=== PATIENT | male | born 1955 | race Caucasian/White ===

== ENCOUNTER 2021-04-17 17:21 | Inpatient (IN) | payer OTHER ==
[~2021-04-17] VITALS: Ht 182.9 cm; Wt 98.3 kg
[2021-04-17 18:25] LABS: BASOPHILS ABSOLUTE AUTO 0.03 K/mm3 (0.00-0.23); BASOPHILS PERCENT AUTO 0 % (0-2); EOSINOPHILS ABSOLUTE AUTO 0.17 K/mm3 (0.00-0.68); EOSINOPHILS PERCENT AUTO 1 % (0-6); Hematocrit 52.6 % (37.0-53.0); Hemoglobin 17.5 g/dL (13.5-17.5); IMMATURE GRAN ABSOLUTE AUTO 0.05 K/mm3 (0.00-0.10); IMMATURE GRAN PERCENT AUTO 0 % (0-1); LYMPHOCYTES ABSOLUTE AUTO 1.91 K/mm3 (0.84-5.20); LYMPHOCYTES PERCENT AUTO 16 % (21-46); MONOCYTES PERCENT AUTO 6 % (4-13); Mean Corpuscular HGB 30.3 pg (26.0-34.0); Mean Corpuscular HGB Conc 33.3 g/dL (31.5-36.5); Mean Corpuscular Volume 91 fL (80-100); Mean Platelet Volume 10.3 fL (9.1-12.4); NEUTROPHILS ABSOLUTE AUTO 8.94 K/mm3 (1.96-9.15); NEUTROPHILS PERCENT AUTO 76 % (41-73); Platelet Count 186 K/mm3 (150-400); RDW Coefficient Variation 13.9 % (11.7-14.2); RDW Standard Deviation 46.8 fL (35.1-46.3); Red Blood Cell Count 5.77 M/mm3 (4.30-5.90)
[2021-04-17 18:34] LABS: Albumin, Blood 4.4 g/dL (3.4-5.0); Albumin/Globulin Ratio 1.3 (0.8-1.8); Bilirubin, Total 0.7 mg/dL (0.1-1.0); Creatinine, Blood 1.47 mg/dL (0.60-1.20); Globulin, Blood 3.5 g/dL (2.2-4.0); Potassium, Blood 4.6 mmol/L (3.5-5.5); Total Protein, Blood 7.9 g/dL (6.4-8.2)
[2021-04-17] MEDS ORDERED: CLOP75 PO (19:03)
[2021-04-17 19:20] LABS: Influenza A, PCR NEGATIVE (NEGATIVE); Influenza B, PCR NEGATIVE (NEGATIVE); Resp Syncytial Virus, PCR NEGATIVE (NEGATIVE); SARS-Cov-2 (COVID-19) PCR, MMC NEGATIVE (NEGATIVE)
--- NOTE | 2021-04-17 22:00 | NUR ---
ASSUMED CARE PT ARRIVED FROM MEN'S LOCKER ROOM ATTENDANT AT 2054 AFTER RECEIVING PCI FOR INFERIOR OR. RECEIVED REPORT FROM BOTH SUZIE YOU IN ED, AND SUZIE AREVALO FROM MEN'S LOCKER ROOM ATTENDANT. HE ARRIVED TO HOSPITAL TODAY AFTER EXPERIENCING DIZZINESS, LIGHT HEADEDNESS, DIAPHORESIS, AND CHEST PAIN WHILE DOING YARD WORK. HE TOOK ASPIRIN AT HOME AND NOTICED HIS HEART RATE WAS IN THE 40'S. PT HAS HX OF 5-WAY BYPASS AND HAS CHRONIC ST ELEVATION/OR. PT HAS PERCLOSE R.GROIN ACCESS SITE. NO HEMATOMA, NO BLEEDING NOTED AT SITE. HE IS A/OX4, FOLLOWS COMMANDS AND EXPRESSES NEEDS WELL. HR IS SR WITH CHRONIC ST ELEVATION, RATE IN 60'S. HE DENIES CHEST PAIN. BP STABLE. ON ROOM AIR, SPO2 >95%, LUNGS CLEAR THROUGHOUT. HE DENIES NAUSEA/VOMITING, AND IS REQUESTING A SNACK. BOWEL TONES ACTIVE X4, LAST BM THIS AM. HE USES URINAL AT BEDSIDE WITHOUT DIFFICULTY. SKIN OVERALL C/D/I. 18G IV TO LEFT WRIST, INFUSING WITH NS AT 75ML/HR, 20G TO RIGHT AC, SL. AT 2151, DR. DEVINE D/C HEPARIN GTT AND PT IS TO RECEIVE HEPARIN SUBQ TID ONLY. PT REMAINS SUPINE WITH HEAD UNELEVATED. ORDERS REVIEWED, WILL TREAT PRESCRIBED.
[2021-04-17 22:06] LABS: International Normalized Ratio 1.14; Prothrombin Time Results 11.9 Sec (9.7-11.5)
[2021-04-17] MEDS ORDERED: Carvedilol12.5 MG PO (22:08)
[2021-04-17] MEDS ORDERED: GEMF600 PO (22:08)
[2021-04-17] MEDS ORDERED: QUIN10 PO (22:09)
--- NOTE | 2021-04-17 23:56 | NUR ---
PT RESTING AT THIS TIME, REMAINS A/OX4. HE HAS EATEN A SNACK AND DENIES NAUSEA OR VOMITING AT THIS TIME. HR REMAINS SINUS EMILIANO TO SINUS RHYTHM WITH SOME IMPROVEMENT TO ST ELEVATION. VSS. RIGHT GROIN SITE REMAINS UNCHANGED, NO BLEEDING OR HEMATOMA FORMATION PRESENT.
[2021-04-18 05:13] LABS: BASOPHILS ABSOLUTE AUTO 0.02 K/mm3 (0.00-0.23); BASOPHILS PERCENT AUTO 0 % (0-2); EOSINOPHILS ABSOLUTE AUTO 0.11 K/mm3 (0.00-0.68); EOSINOPHILS PERCENT AUTO 1 % (0-6); Hematocrit 44.9 % (37.0-53.0); Hemoglobin 15.2 g/dL (13.5-17.5); IMMATURE GRAN ABSOLUTE AUTO 0.03 K/mm3 (0.00-0.10); IMMATURE GRAN PERCENT AUTO 0 % (0-1); LYMPHOCYTES ABSOLUTE AUTO 2.26 K/mm3 (0.84-5.20); LYMPHOCYTES PERCENT AUTO 21 % (21-46); MONOCYTES ABSOLUTE AUTO 0.73 K/mm3 (0.16-1.47); MONOCYTES PERCENT AUTO 7 % (4-13); Mean Corpuscular HGB 30.5 pg (26.0-34.0); Mean Corpuscular HGB Conc 33.9 g/dL (31.5-36.5); Mean Corpuscular Volume 90 fL (80-100); NEUTROPHILS ABSOLUTE AUTO 7.39 K/mm3 (1.96-9.15); NEUTROPHILS PERCENT AUTO 70 % (41-73); Platelet Count 166 K/mm3 (150-400); RDW Coefficient Variation 13.9 % (11.7-14.2); RDW Standard Deviation 45.6 fL (35.1-46.3); Red Blood Cell Count 4.98 M/mm3 (4.30-5.90); White Blood Cell Count 10.54 K/mm3 (4.00-11.30)
[2021-04-18 05:48] LABS: Anion Gap 7 mmol/L (6-16); Blood Urea Nitrogen 23 mg/dL (8-24); Bun/Creatinine Ratio 19.2 (12.0-20.0); CO2, Blood 23 mmol/L (21-32); Calcium, Blood 8.9 mg/dL (8.5-10.1); Chloride, Blood 109 mmol/L (98-108); Glomerular Filtration Rate >60 (60-); Glucose, Blood 151 mg/dL (70-99); Potassium, Blood 3.8 mmol/L (3.5-5.5); Sodium, Blood 139 mmol/L (136-145)
--- NOTE | 2021-04-18 06:07 | NUR ---
PT REMAINS A/O T/O SHIFT. HE SLEPT MINIMALLY. CONTINUOUS CARDIAC MONITORING SHOWS SINUS EMILIANO WITH NO ST ELEVATION IN LEAD II OR III, RATE IN 50-60'S. BP STABLE. PT STARTED TO C/O SOME SHORTNESS OF BREATH AROUND 0500. HE DENIED CHEST PAIN, LIGHT HEADEDNESS, DIZZINESS OR NAUSEA/VOMITING. 2L O2 PLACED AND HE REPORTED HE FELT BETTER. SPO2 >98%. HE CONTINUES TO USE THE URINAL WITHOUT ASSISTANCE. RIGHT FEMORAL SITE REMAINS STABLE, NO HEMATOMA OR BLEEDING NOTED. 500ML NS GIVEN, HE IS NOW SALINE LOCKED. PALLIATIVE CONSULT ORDERED PT DOES NOT HAVE ANY ADVANCED END OF LIFE CARE PLANNED. WILL REPORT TO ONCOMING SHIFT WHEN AVAILABLE.
--- NOTE | 2021-04-18 08:44 | NUR ---
When this RN brought in pt's breakfast tray, he stated that he typically eats keto diet at home. This RN offered for soda maker to see patient if he ends up staying in hospital overnight again. Pt states "they won't give me anything with fat". This RN encourages that he may be able to eat closer to his home diet, but with less salt. Pt states "Actually, did you know that studies show that people live longer if they eat 9674-3830 mg of sodium per day?" This RN attempted to educate about CHF and salt. Pt stated "well the problem is that people don't drink enough water to balance out all the salt". Attempted education about fluid overload with CHF. Pt does not seem to be receptive. Dr Payne notified about pt's dietary preferences.
--- NOTE | 2021-04-18 17:38 | NUR ---
SUMMARY Pt PCU status, transferred to PCU 14 at 1720. Discharge held as troponin is continuing to trend upwards. Pt and spouse updated, verbalized understanding and agreeable to staying overnight for observation. Requested sleep aid as pt did not sleep last night. Dr Payne notified, plans to place new orders. On transfer, pt A&O x 4. Answers questions, follows commands, verbalizes needs. Pleasant and cooperative with care. Tolerating activity well, independent in room. Pt ambulated from ICU 14 to PCU 14. No chest pain or shortness of breath with activity. No abnormality per continuous heart monitoring. No edema. Capillary refill less than 3 seconds BUE and BLE. Groin site unchanged from initial assessment. Care transferred to VEGETABLE WASHING MACHINE OPERATORLicha.
--- NOTE | 2021-04-18 18:41 | NUR ---
TRANSFER/SHIFT SUMMARY: PATIENT ARRIVED TO PCU AT 1750 VIA WALKING. VITAL SIGNS STABLE. TELE SHOWING SINUS EMILIANO WITH HR 50-60'S. DENIES CHEST PAIN/PRESSURE. RIGHT GROIN SITE WNL, SOFT/NONTENDER. NO SIGNS OF HEMATOMA. VERY MINIMAL BRUISING AT SITE. ON ROOM AIR SATING MID 90'S. DENIES COUGH. LUNGS SOUNDING CLEAR. DENIES ABDOMINAL PAIN/NAUSEA. UP IND TO BATHROOM. NEURO WNL, DENIES NUMBNESS/TINGLING. ALERT AND ORIENTED. ORIENTED TO UNIT/ROOM/CALL LIGHT. AT BEDSIDE. PATIENT EATING DINNER AT THIS TIME. DENIES NEEDS. WILL CONTINUE TO MONITOR AND REPORT OFF.
--- NOTE | 2021-04-18 20:37 | NUR ---
SPOKE WITH DR. DEVINE, PATIENT STATES HE MIGHT WANT TO TRY A SLEEP AID LATER TONIGHT. SHE SAID SHE ORDERED TRAZADONE AND WILL ORDER MELATONIN, GIVE ONE OR THE OTHER. STATES SHE ORDERED A TROPONIN FOR THE AM.
--- NOTE | 2021-04-18 21:20 | NUR ---
INITIAL NOTE: PATIENT A/OX3. DENIES PAIN. DENIES CHEST PAIN. STATES HE HAS NOT HAD CHEST PAIN SINCE HE WENT TO [employer]. SINUS EMILIANO ON TELE IN THE 50'S-60'S. ON ROOM AIR, DENIES SOB AT REST AND WITH EXERTION. R GROIN SITE WITH SMALL AMOUNT OF BRUISING IS SOFT, PATIENT REPORTS SLIGHT TENDERNESS WITH PALPATION. UP TO BATHROOM, HE IS STEADY ON HIS FEET. HE LIVES WITH HIS . HE DENIED NEED FOR MELATONIN OR TRAZADONE AT THIS TIME, STATES HE FEELS LIKE HE CAN SLEEP WITHOUT IT BUT HE WILL CALL IF HE FEELS LIKE HE NEEDS IT. DISCUSSED PLAN OF CARE FOR SHIFT. CALL LIGHT WITHIN REACH.
--- NOTE | 2021-04-19 00:10 | NUR ---
PATIENT CONTINUES TO DENY CHEST PAIN AND SHORTNESS OF BREATH. STATES THAT HE HAS SLEPT "OFF AND ON" AND REQUESTED TRAZADONE. MEDICATED PER EMAR.
--- NOTE | 2021-04-19 01:30 | NUR ---
PATIENT NAUSEAUS AND VOMITED IN BATHROOM. GAVE HIM CRACKERS, SPRITE, ICE CHIPS, AND WATER. HE WANTED TO CHEW ON SOME CRACKERS. HE DID NOT WANT ZOFRAN AT THIS TIME. DENIES CHEST PAIN/PRESSURE. DENIED DIZZINESS AND LIGHTHEADEDNESS WHEN UP. ENCOURAGED PATIENT TO CALL WHEN HE NEEDS TO GET UP TO THE BATHROOM.
[2021-04-19 04:06] LABS: Bun/Creatinine Ratio 16.3 (12.0-20.0); Calcium, Blood 9.6 mg/dL (8.5-10.1); Creatinine, Blood 1.47 mg/dL (0.60-1.20)
--- NOTE | 2021-04-19 06:30 | NUR ---
SHIFT SUMMARY: PATIENT A/OX3. HAS DENIED PAIN, CHEST PAIN, AND SHORTNESS OF BREATH THROUGHOUT THE SHIFT. AM TROPONIN LESS THAN LAST TROPONIN. HEART RATE AVERAGED 60-65 BPM LAST NIGHT. HAD NAUSEA AND EMESIS, DID NOT WANT ZOFRAN. RIGHT GROIN SITE REMAINS UNCHANGED. POSSIBLE DISCHARGE TODAY. WILL CONTINUE TO MONITOR AND REPORT TO ONCOMING RN.
[2021-04-19] MEDS ORDERED: ASPI81CH PO (10:32)
--- NOTE | 2021-04-19 11:11 | NUR ---
PT DISCHARGED HOME WITH HIS . PT ABLE TO AMBULATE WITHOUT ASSISTANCE. DISCHARGE TEACHING REVIEWED INCLUDING MEDICATION LIST, FOLLOW UP APPOINTMENTS, GROIN SITE CARE/PRECAUTIONS, AND EDUCATION MATERIALS. IVs REMOVED X 2 WNL. ALL BELONGINGS SENT HOME WITH PT. NO FURTHER DISCHARGE NEEDS IDENTIFIED AT THIS TIME.
== END 2021-04-19 11:14 | disposition home or self-care (01) | DRG 251 ==
LOC: ER 17:21 → ICUW 18:26 → PCU 04-18 17:30
PROVIDERS: Physician Assistant; Student in an Organized Health Care Education/Training Program; ADMIT Internal Medicine Interventional Cardiology
PROC: 02C03ZZ Extirpation of Matter from Coronary Artery, One Artery, Percutaneous Approach (ICD-10-PCS; principal; 2021-04-17)
PROC: 02703ZZ Dilation of Coronary Artery, One Artery, Percutaneous Approach (ICD-10-PCS; 2021-04-17)
PROC: B2111ZZ Fluoroscopy of Multiple Coronary Arteries using Low Osmolar Contrast (ICD-10-PCS; 2021-04-17)
PROC: B2181ZZ Fluoroscopy of Left Internal Mammary Bypass Graft using Low Osmolar Contrast (ICD-10-PCS; 2021-04-17)
DX: I21.19 ST elevation (STEMI) myocardial infarction involving other coronary artery of inferior wall (principal); I25.10 Atherosclerotic heart disease of native coronary artery without angina pectoris; E78.5 Hyperlipidemia, unspecified; G47.30 Sleep apnea, unspecified; Z20.822 Contact with and (suspected) exposure to COVID-19; Z99.89 Dependence on other enabling machines and devices; Z95.5 Presence of coronary angioplasty implant and graft; I25.2 Old myocardial infarction; Z28.21 Immunization not carried out because of patient refusal; Z88.2 Allergy status to sulfonamides; Z88.8 Allergy status to other drugs, medicaments and biological substances; Z79.899 Other long term (current) drug therapy; Z79.02 Long term (current) use of antithrombotics/antiplatelets
CPT/HCPCS: 0241U; 36415; 71045; 80048; 80053; 83690; 83880; 84484; 85025; 85347; 85610; 92937; 92941; 92973; 93005; 93010; 93306; 93455; 96374; 99152; 99153; 99285-25; A9270; C1725; C1757; C1760; C1769; C1887; C1894; J0461; J1644; J1940; J2250; J3010; J7030; J7040; J7050; Q9967

== ENCOUNTER → 2022-05-01 | Outpatient (CLI) | payer OTHER ==
[~2022-05-01] MED LIST: ASPI81CH PO; CLOP75 PO; Carvedilol12.5 MG PO; GEMF600 PO; QUIN10 PO
== END | disposition home or self-care (01) ==
LOC: LAB 12:45 → LAB SHORT 12:45
DX: R10.9 Unspecified abdominal pain (principal)
CPT/HCPCS: 87338

== ENCOUNTER → 2023-03-11 | Outpatient (CLI) | payer OTHER ==
[2023-03-11 16:20] LABS: BASOPHILS ABSOLUTE AUTO 0.02 K/mm3 (0.00-0.23); BASOPHILS PERCENT AUTO 0 % (0-2); EOSINOPHILS ABSOLUTE AUTO 0.04 K/mm3 (0.00-0.68); EOSINOPHILS PERCENT AUTO 0 % (0-6); IMMATURE GRAN ABSOLUTE AUTO 0.07 K/mm3 (0.00-0.10); IMMATURE GRAN PERCENT AUTO 1 % (0-1); LYMPHOCYTES ABSOLUTE AUTO 2.07 K/mm3 (0.84-5.20); LYMPHOCYTES PERCENT AUTO 14 % (21-46); MONOCYTES ABSOLUTE AUTO 0.93 K/mm3 (0.16-1.47); MONOCYTES PERCENT AUTO 6 % (4-13); Mean Corpuscular HGB Conc 32.5 g/dL (31.5-36.5); Mean Corpuscular Volume 95 fL (80-100); Mean Platelet Volume 10.1 fL (9.1-12.4); NEUTROPHILS ABSOLUTE AUTO 11.33 K/mm3 (1.96-9.15); NEUTROPHILS PERCENT AUTO 78 % (41-73); Platelet Count 195 K/mm3 (150-400); RDW Coefficient Variation 14.6 % (11.7-14.2); Red Blood Cell Count 5.81 M/mm3 (4.30-5.90); White Blood Cell Count 14.46 K/mm3 (4.00-11.30)
[2023-03-11 16:22] LABS: Hematocrit 55.4 % (37.0-53.0)
[2023-03-11 16:29] LABS: Albumin, Blood 4.2 g/dL (3.4-5.0); Bilirubin, Total 1.3 mg/dL (0.1-1.0); Bun/Creatinine Ratio 9.5 (12.0-20.0); Calcium, Blood 9.9 mg/dL (8.5-10.1); Creatinine, Blood 1.99 mg/dL (0.60-1.20); Globulin, Blood 4.3 g/dL (2.2-4.0); Magnesium, Blood 2.1 mg/dL (1.6-2.4); Potassium, Blood 4.1 mmol/L (3.5-5.5); Total Protein, Blood 8.5 g/dL (6.4-8.2)
== END | disposition home or self-care (01) ==
LOC: LAB 16:13 → LAB SHORT 16:13
PROVIDERS: Emergency Medicine
DX: R11.2 Nausea with vomiting, unspecified (principal); R19.7 Diarrhea, unspecified
CPT/HCPCS: 80053; 83690; 83735; 85025

== ENCOUNTER → 2023-03-12 | Outpatient (CLI) | payer OTHER ==
[2023-03-12 16:06] LABS: BASOPHILS ABSOLUTE AUTO 0.01 K/mm3 (0.00-0.23); BASOPHILS PERCENT AUTO 0 % (0-2); EOSINOPHILS PERCENT AUTO 0 % (0-6); Hematocrit 48.9 % (37.0-53.0); Hemoglobin 16.2 g/dL (13.5-17.5); IMMATURE GRAN ABSOLUTE AUTO 0.06 K/mm3 (0.00-0.10); IMMATURE GRAN PERCENT AUTO 1 % (0-1); LYMPHOCYTES ABSOLUTE AUTO 1.46 K/mm3 (0.84-5.20); LYMPHOCYTES PERCENT AUTO 11 % (21-46); MONOCYTES ABSOLUTE AUTO 0.97 K/mm3 (0.16-1.47); MONOCYTES PERCENT AUTO 7 % (4-13); Mean Corpuscular HGB 30.9 pg (26.0-34.0); Mean Corpuscular HGB Conc 33.1 g/dL (31.5-36.5); Mean Corpuscular Volume 93 fL (80-100); Mean Platelet Volume 10.4 fL (9.1-12.4); NEUTROPHILS ABSOLUTE AUTO 10.67 K/mm3 (1.96-9.15); NEUTROPHILS PERCENT AUTO 81 % (41-73); Platelet Count 168 K/mm3 (150-400); RDW Coefficient Variation 14.3 % (11.7-14.2); RDW Standard Deviation 49.1 fL (35.1-46.3); Red Blood Cell Count 5.24 M/mm3 (4.30-5.90); White Blood Cell Count 13.17 K/mm3 (4.00-11.30)
[2023-03-12 16:16] LABS: Albumin, Blood 3.5 g/dL (3.4-5.0); Albumin/Globulin Ratio 0.9 (0.8-1.8); Bilirubin, Total 1.5 mg/dL (0.1-1.0); Bun/Creatinine Ratio 11.3 (12.0-20.0); Calcium, Blood 9.4 mg/dL (8.5-10.1); Creatinine, Blood 2.22 mg/dL (0.60-1.20); Globulin, Blood 4.1 g/dL (2.2-4.0); Potassium, Blood 4.1 mmol/L (3.5-5.5); Total Protein, Blood 7.6 g/dL (6.4-8.2)
== END ==
LOC: LAB 16:00 → LAB SHORT 16:00
PROVIDERS: Emergency Medicine
DX: N20.0 Calculus of kidney (principal)
CPT/HCPCS: 80053; 85025

== ENCOUNTER 2023-10-04 10:08 | Day surgery (SDC) | payer OTHER ==
[~2023-10-04] VITALS: Ht 182.9 cm; Wt 115.5 kg
[~2023-10-04 10:08] MED LIST changes: +Lactated Ringer's 1,000 ML IV ONE
[2023-10-04] MEDS ORDERED: Lactated Ringer's 1,000 ML IV ONE (10:45)
[2023-10-04] MEDS ORDERED: JARDIANCE10 MG PO (10:56)
--- NOTE | 2023-10-04 10:59 | NUR ---
10/04/23 1055 MARBELLA NAM IN FOR PRE OP INJECTION W/ 10CC ( 9CC OF 1% LIDOCAINE W/EPI 1:100,000 AND 1CC OF SODIUM BICARBONATE). CALL LIGHT AT BEDSIDE. PT TOLERATED INJECTION WELL
[2023-10-04] MEDS ORDERED: propofoL 20 ML IV ONE ×2 (11:29)
[2023-10-04 11:56] VITALS: BP 117/90
--- NOTE | 2023-10-04 12:05 | NUR ---
10/04/23 1205 ANAYELI SWARTZ PT IN AT BEDSIDE. PT DOING WELL
== END 2023-10-04 12:25 | disposition home or self-care (01) ==
LOC: ORSCSDS 10:08
PROVIDERS: Orthopaedic Surgery
PROC: 01N54ZZ Release Median Nerve, Percutaneous Endoscopic Approach (ICD-10-PCS; principal; 2023-10-04 12:15)
DX: G56.01 Carpal tunnel syndrome, right upper limb (principal); I10 Essential (primary) hypertension; G47.33 Obstructive sleep apnea (adult) (pediatric); I50.9 Heart failure, unspecified; I25.2 Old myocardial infarction; I25.10 Atherosclerotic heart disease of native coronary artery without angina pectoris; E66.9 Obesity, unspecified; Z68.34 Body mass index [BMI] 34.0-34.9, adult; Z79.82 Long term (current) use of aspirin; Z79.02 Long term (current) use of antithrombotics/antiplatelets; Z79.899 Other long term (current) drug therapy
CPT/HCPCS: J2704; J7120

== ENCOUNTER → 2024-12-07 | Outpatient (CLI) | payer OTHER ==
[~2024-12-07] MED LIST changes: +JARDIANCE10 MG PO; -Lactated Ringer's 1,000 ML IV ONE
[2024-12-07 14:45] LABS: BASOPHILS ABSOLUTE AUTO 0.03 K/mm3 (0.00-0.23); BASOPHILS PERCENT AUTO 0 % (0-2); EOSINOPHILS ABSOLUTE AUTO 0.19 K/mm3 (0.00-0.68); EOSINOPHILS PERCENT AUTO 3 % (0-6); Hematocrit 51.6 % (37.0-53.0); Hemoglobin 17.3 g/dL (13.5-17.5); IMMATURE GRAN ABSOLUTE AUTO 0.02 K/mm3 (0.00-0.10); IMMATURE GRAN PERCENT AUTO 0 % (0-1); LYMPHOCYTES ABSOLUTE AUTO 2.75 K/mm3 (0.84-5.20); LYMPHOCYTES PERCENT AUTO 38 % (21-46); MONOCYTES ABSOLUTE AUTO 0.68 K/mm3 (0.16-1.47); MONOCYTES PERCENT AUTO 9 % (4-13); Mean Corpuscular HGB Conc 33.5 g/dL (31.5-36.5); Mean Corpuscular Volume 95 fL (80-100); NEUTROPHILS ABSOLUTE AUTO 3.67 K/mm3 (1.96-9.15); NEUTROPHILS PERCENT AUTO 50 % (41-73); NRBC ABSOLUTE 0.00 K/mm3 (0.00-0.02); NRBC Auto 0.0 /100 WBC (0.0-0.2); Platelet Count 160 K/mm3 (150-400); RDW Coefficient Variation 14.8 % (11.7-14.2); RDW Standard Deviation 50.9 fL (35.1-46.3)
[2024-12-07 15:07] LABS: Alanine Aminotransfer (ALT/SGP 62.0 U/L (12-78); Albumin, Blood 3.6 g/dL (3.4-5.0); Albumin/Globulin Ratio 1.0 (0.8-1.8); Anion Gap 16.0 mmol/L (3-11); Aspartate Aminotrans (AST/SGOT 29.0 U/L (12-37); Bilirubin, Total 1.0 mg/dL (0.1-1.0); Blood Urea Nitrogen 20.0 mg/dL (8-24); CO2, Blood 22.0 mmol/L (21-32); Calcium, Blood 9.5 mg/dL (8.5-10.1); Chloride, Blood 106.0 mmol/L (98-108); Creatinine, Blood 1.2 mg/dL (0.60-1.20); Globulin, Blood 3.6 g/dL (2.2-4.0); Glucose, Blood 112.0 mg/dL (70-99); Potassium, Blood 4.5 mmol/L (3.5-5.5); Sodium, Blood 139.0 mmol/L (136-145); Total Protein, Blood 7.2 g/dL (6.4-8.2)
== END | disposition home or self-care (01) ==
LOC: LAB SHORT 14:42 → LAB 14:42
DX: R42 Dizziness and giddiness (principal); R94.31 Abnormal electrocardiogram [ECG] [EKG]
CPT/HCPCS: 80053; 84484; 85025